=== PATIENT | female | born 1990 ===

== ENCOUNTER 2016-08-02 10:25 | Emergency (ER) | payer BC, OTHER ==
[2016-08-02 10:31] VITALS: BP 122/85; PULSE 96; RESP 18; TEMP 97.9; O2SAT 98
[2016-08-02] MEDS ORDERED: Naproxen 550 mg Tab PO STA (11:09)
[2016-08-02] MEDS ORDERED: Naproxen 550 mg Tab PO ONE (11:26)
--- NOTE | 2016-08-02 11:34 | C.PDOC ---
History Of Present Illness 26-year-old female presents to the emergency department with complaints of sore throat, hoarse voice, non-productive cough and nasal congestion. Patient notes that yesterday she had an episode of nausea, w/ non-bloody/non-bilious vomiting and watery/non-bloody diarrhea, that has since resolved. Patient denies abdominal pain, dysuria/hematuria, back pain, dizziness, fever, vaginal discharge/bleeding. Time Seen by Provider: 08/02/16 10:42 Chief Complaint (Nursing): Flu-like Symptoms History Per: Patient History/Exam Limitations: no limitations Onset/Duration Of Symptoms: Days Current Symptoms Are (Timing): Gone Severity: Mild Past Medical History Reviewed: Historical Data, Nursing Documentation, Vital Signs Vital Signs: Last Vital Signs Temp 97.9 F 08/02/16 10:31 Pulse 96 H 08/02/16 10:31 Resp 18 08/02/16 10:31 BP 122/85 08/02/16 10:31 Pulse Ox 98 08/02/16 12:16 Family History: States: No Known Family Hx - Social History Hx Alcohol Use: No Hx Substance Use: No - Immunization History Hx Tetanus Toxoid Vaccination: Yes Hx Influenza Vaccination: Yes Hx Pneumococcal Vaccination: No Review Of Systems Except As Marked, All Systems Reviewed And Found Negative. Constitutional: Negative for: Fever, Chills, Malaise ENT: Positive for: Throat Pain Respiratory: Positive for: Cough. Negative for: Shortness of Breath, Sputum Gastrointestinal: Positive for: Nausea, Vomiting, Diarrhea. Negative for: Abdominal Pain Genitourinary: Negative for: Vaginal Discharge, Vaginal Bleeding Musculoskeletal: Negative for: Back Pain Skin: Negative for: Rash Physical Exam - Physical Exam Appears: Well, Non-toxic, No Acute Distress Skin: Warm, Dry, No Rash Eye(s): bilateral: Normal Inspection Oral Mucosa: Moist Throat: Erythema, No Exudate, No Drooling Neck: Normal, Normal ROM, Supple Cardiovascular: Rhythm Regular Respiratory: Normal Breath Sounds, No Rales, No Rhonchi, No Wheezing Gastrointestinal/Abdominal: Normal Exam, Bowel Sounds, Soft, No Tenderness Extremity: Normal ROM, No Pedal Edema, No Calf Tenderness, No Deformity Neurological/Psych: Oriented x3 ED Course And Treatment O2 Sat by Pulse Oximetry: 98 (RA) Pulse Ox Interpretation: Normal Progress Note: POC ordered and reviewed - negative. Patient given PO Naprosyn. Reevaluation Time: 11:35 Reassessment Condition: Improved (Patient reassessed, is resting comfortably, in no current pain/distress. She was reassured her symptoms ae likely viral, and that treatment is supportive. She was given rxs for Naprosyn, Zofran and Chloraseptic spray, and instructed to follow up with PMD/clinic in 1-2 days. She understands she should return to ED if symptoms worsen.) Disposition Counseled Patient/Family Regarding: Diagnosis, Need For Followup, Rx Given - Disposition Referrals: Renetta Farris MD [Medical Doctor] - Disposition: HOME/ ROUTINE Disposition Time: 11:35 Condition: STABLE Additional Instructions: FOLLOW UP WITH YOUR DOCTOR IN 1-2 DAYS DRINK PLENTY OF FLUIDS USE MEDICATIONS NEEDED RETURN TO ER IF SYMPTOMS WORSEN Prescriptions: Phenol/Glycerin [Chloraseptic Max [place]] 1 spray MM Q6 PRN #1 spray PRN Reason: THROAT PAIN Naproxen [Naprosyn Tab] 375 mg PO BID PRN #15 tab PRN Reason: pain Ondansetron [Zofran Odt] 4 mg PO Q8 PRN #10 odt PRN Reason: Nausea/Vomiting Instructions: Viral Syndrome (ED) Print Language: GEORGIAN - POA Present On Arrival: None - Clinical Impression Clinical Impression: Viral syndrome - Scribe Statement The provider has reviewed the documentation as recorded by the [facility] All medical record entries made by the Nicoleibjoaquin were at my direction and personally dictated by me. I have reviewed the chart and agree that the record accurately reflects my personal performance of the history, physical exam, medical decision making, and the department course for this patient. I have also personally directed, reviewed, and agree with the discharge instructions and disposition.
== END 2016-08-02 11:43 | disposition home or self-care (01) ==
LOC: C.ER 10:25
DX: B34.9 Viral infection, unspecified (principal)

== ENCOUNTER 2017-09-05 10:20 | Emergency (ER) | payer BC, OTHER ==
[2017-09-05 10:27] VITALS: BP 129/81; PULSE 96; RESP 17; TEMP 98.2; O2SAT 100
--- NOTE | 2017-09-05 10:46 | C.PDOC ---
History Of Present Illness SORE THROAT X 5 DAYS. WORSE W SWALLOWING. RHINORRHEA @ NIGHT. +L EAR PAIN, NO DC OR HEARING LOSS. NO FEVER, SICK CONTACTS EXAM NAD NONTOXIC HEENT B/L TM CLEAR; NOSE CLEAR; PHARYNX B/L ERYTHEMA NO EXUDATE, MIN SWELL +L SUBMAND NODE TEND MOBILE SUPPLE NARD REMAINDER NEG Time Seen by Provider: 09/05/17 10:41 Chief Complaint (Nursing): ENT Problem History Per: Patient History/Exam Limitations: no limitations Onset/Duration Of Symptoms: Days Current Symptoms Are (Timing): Still Present Associated Symptoms: Other (Rhinorrhea). denies: Fever Ear Symptoms: Left: Ear Pain Past Medical History Reviewed: Historical Data, Nursing Documentation, Vital Signs Vital Signs: Last Vital Signs Temp 98.2 F 09/05/17 10:25 Pulse 96 H 09/05/17 10:25 Resp 17 09/05/17 10:25 BP 129/81 09/05/17 10:25 Pulse Ox 100 09/05/17 11:12 - Medical History PMH: No Chronic Diseases Surgical History: No Surg Hx Family History: States: No Known Family Hx - Social History Hx Alcohol Use: No Hx Substance Use: No - Immunization History Hx Tetanus Toxoid Vaccination: Yes Hx Influenza Vaccination: Yes Hx Pneumococcal Vaccination: No Review Of Systems Except As Marked, All Systems Reviewed And Found Negative. Constitutional: Negative for: Fever ENT: Positive for: Ear Pain (Left), Nose Discharge, Throat Pain. Negative for: Ear Discharge, Other (hearing loss) Physical Exam - Physical Exam Appears: Non-toxic, No Acute Distress Skin: Normal Color, Warm, Dry Head: Atraumatic Eye(s): bilateral: Normal Inspection Ear(s): Bilateral: Normal Nose: Normal (Clear) Oral Mucosa: Moist Throat: Erythema (Pharynx Bilateral erythema ), No Exudate, Other (Minimal swelling, +L submand node tend mobile ) Neck: Supple Respiratory: Other (NARD) Neurological/Psych: Oriented x3, Normal Speech ED Course And Treatment O2 Sat by Pulse Oximetry: 100 (RA) Pulse Ox Interpretation: Normal Medical Decision Making Medical Decision Making: Plan: Dexamethasone 10mg IM Toradol 60mg IM Lidocaine 2% viscous 15ml PO Disposition Counseled Patient/Family Regarding: Diagnosis, Need For Followup, Rx Given - Disposition Referrals: [facility] [Outside] [facility] [Outside] Disposition: HOME/ ROUTINE Disposition Time: 10:45 Condition: GOOD Prescriptions: Ibuprofen [Motrin] 600 mg PO Q6 #30 tab Instructions: Sore Throat, Adult (DC) Forms: [facility] (Persian) - Clinical Impression Clinical Impression: Pharyngitis - Scribe Statement The provider has reviewed the documentation as recorded by the Scribe (Jolanta Chang) Provider Attestation: All medical record entries made by the Scribe were at my direction and personally dictated by me. I have reviewed the chart and agree that the record accurately reflects my personal performance of the history, physical exam, medical decision making, and the department course for this patient. I have also personally directed, reviewed, and agree with the discharge instructions and disposition.
== END 2017-09-05 11:01 | disposition home or self-care (01) ==
LOC: C.ER 10:20
DX: J02.9 Acute pharyngitis, unspecified (principal)
CPT/HCPCS: 96372; 99282; J1100; J1885